=== PATIENT | male | born 1980 ===

== ENCOUNTER 2018-01-05 20:31 | Emergency (ER) | payer BC, OTHER ==
[2018-01-05 20:38] VITALS: BP 140/91; PULSE 66; RESP 16; TEMP 98.8; O2SAT 98
--- NOTE | 2018-01-05 20:43 | ED PDOC ---
HPI: Psych/Substance Abuse Time Seen by Provider: 01/05/18 20:42 Chief Complaint (Nursing): Psychiatric Evaluation Chief Complaint (Provider): crisis eval History Per: Patient, EMS, Family (mother) Additional Complaint(s): 37-year-old male presents for crisis evaluation. Patient's called police after patient locked himself at home in the bathroom with a knife. He did not use the knife to harm himself or do anything else to harm himself. Patient feels very stressed since he lost his job 3 months ago. He denies any etoh or drug use and denies any suicidal or homicidal ideation. PMD: Dr. Man [facility] Past Medical History Reviewed: Historical Data, Nursing Documentation, Vital Signs Vital Signs: Last Vital Signs Temp 98.8 F 01/05/18 20:35 Pulse 66 01/05/18 20:35 Resp 16 01/05/18 20:35 BP 140/91 H 01/05/18 20:35 Pulse Ox 98 01/05/18 20:35 - Medical History PMH: No Chronic Diseases - Surgical History Surgical History: No Surg Hx - Family History Family History: States: No Known Family Hx - Living Arrangements Living Arrangements: With Family - Social History Current smoker - smoking cessation education provided: No Alcohol: None Drugs: Denies - Allergies Allergies/Adverse Reactions: Allergies Allergy/AdvReac Type Severity Reaction Status Date / Time No Known Allergies Allergy Verified 01/05/18 20:43 Review of Systems ROS Statement: Except As Marked, All Systems Reviewed And Found Negative Psych: Positive for: Suicidal ideation Physical Exam - Reviewed Nursing Documentation Reviewed: Yes Vital Signs Reviewed: Yes - Physical Exam Appears: Positive for: Well, Non-toxic, No Acute Distress Skin: Negative for: Rash Eye Exam: Positive for: Normal appearance Cardiovascular/Chest: Positive for: Regular Rate, Rhythm Respiratory: Positive for: Normal Breath Sounds Neurologic/Psych: Positive for: Alert, Oriented - ECG O2 Sat by Pulse Oximetry: 98 Pulse Ox Interpretation: Normal Medical Decision Making Medical Decision Makin37 year old male presents for crisis eval Plan: Crisis eval 1:1 observation As per crisis counselor and psychiatrist 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 Pepe, patient does not meet criteria for admission and is stable for discharge. Disposition - Clinical Impression Clinical Impression: Adjustment disorder - Patient ED Disposition Is Patient to be Admitted: No Counseled Patient/Family Regarding: Need For Followup - Disposition Referrals: [facility] [Outside] Disposition: Routine/Home Disposition Time: 21:37 Condition: STABLE Additional Instructions: Follow up as directed. Instructions: Adjustment Disorder Forms: [facility] [facility] (Mongolian)
== END 2018-01-05 22:00 | disposition home or self-care (01) ==
LOC: H.ER 20:31
DX: F43.20 Adjustment disorder, unspecified (principal)